=== PATIENT | male | born 1965 | race African-American/Black ===

== ENCOUNTER → 2017-10-10 | Day surgery (SDC) | payer BC ==
[~2017-10-10] MED LIST: LIDOCAINE 1% PF 2 ML VIAL. ID; LIDOCAINE 2% PF Vial for OR 5 ML VIAL.; MORPHINE SULFATE 2 MG/ML DISP.SYRIN. IV; ONDANSETRON PF 4 MG/2 ML VIAL. IV; PROCHLORPERAZINE 10 MG/2 ML VIAL. IV; PROPOFOL 40 ML IV; fentaNYL PF VIAL 100 MCG/2 ML VIAL IV
[2017-10-10 08:18] LABS: POC GLUCOSE 86 mg/dL (70-99)
[2017-10-10] MEDS: IV RINGERS,LACTATED 1000ML 1,000 ML IV (08:25)
== END | disposition home or self-care (01) ==
LOC: SURG 08:00
DX: Z12.11 Encounter for screening for malignant neoplasm of colon (principal); I10 Essential (primary) hypertension; E66.01 Morbid (severe) obesity due to excess calories; Z68.43 Body mass index [BMI] 50.0-59.9, adult; E11.9 Type 2 diabetes mellitus without complications; M51.16 Intervertebral disc disorders with radiculopathy, lumbar region; Z79.899 Other long term (current) drug therapy; Z79.84 Long term (current) use of oral hypoglycemic drugs
CPT/HCPCS: 45378; 82962; J2001; J2704

== ENCOUNTER 2017-10-18 21:48 | Emergency (ER) | payer OTHER, BC | END 2017-10-18 23:06 | disposition home or self-care (01) | LOC: ER 21:48 | DX: M25.511 Pain in right shoulder (principal); I10 Essential (primary) hypertension; E11.9 Type 2 diabetes mellitus without complications; V40.5XXA Car driver injured in collision with pedestrian or animal in traffic accident, initial encounter; Y93.89 Activity, other specified; Y92.488 Other paved roadways as the place of occurrence of the external cause; Y99.8 Other external cause status | CPT/HCPCS: 73030; 99284 ==